=== PATIENT | male | born 1990 | race Caucasian/White ===

== ENCOUNTER 2019-03-14 12:17 | Emergency (ER) | payer MEDICAID, OTHER ==
[~2019-03-14] VITALS: Ht 182.9 cm; Wt 86.4 kg
[2019-03-14 12:42] VITALS: BP_DIAS 90
[2019-03-14] MEDS ORDERED: lisinopril 10 MG tablet PO ONE (13:20)
[2019-03-14] MEDS ORDERED: HYDROchlorothiazide 25mg tablet PO ONE (13:20)
[2019-03-14] MEDS ORDERED: LISI-600 PO (13:38)
[2019-03-14] MEDS ORDERED: HYDR12.5 PO (13:38)
[2019-03-14 13:43] VITALS: BP_SYST 155
[2019-03-14] MEDS ORDERED: HYDROchlorothiazide 12.5mg capsule PO ONE (13:50)
== END 2019-03-14 13:57 | disposition home or self-care (01) ==
LOC: ER 12:18
DX: I10 Essential (primary) hypertension (principal); Z76.0 Encounter for issue of repeat prescription; Z79.899 Other long term (current) drug therapy
CPT/HCPCS: 99283